=== PATIENT | male | born 1955 | race Caucasian/White ===

== ENCOUNTER 2020-04-10 00:20 | Emergency (ER) | payer MEDICAID ==
[~2020-04-10] VITALS: Ht 182.9 cm; Wt 104.3 kg
--- NOTE | 2020-04-10 00:29 | NUR ---
BIBRA C/O MIDSTERNAL CP X40 MINS AGO RADIATING TO LEFT SIDE NECK. PER RA PT HAD MULTIPLE COMPLAINTS BUT STATED CP TOWARDS THE END. ALSO PER RA EKG DONE SINUS RYTHM. PT PLACED ON MONITOR AND PULSE OX. VSS. NO ACUTE DISTRESS NOTED. AWAITING MD FOR EVAL AND ORDERS.
--- NOTE | 2020-04-10 00:47 | NUR ---
[employer] MANAGER AT BEDSIDE FOR LABS
[2020-04-10 00:56] LABS: BASOPHILS % (AUTO) 0.4 % (0.0-2.0); EOSINOPHILS % (AUTO) 3.1 % (0.0-6.0); HEMATOCRIT 39 % (39-51); HEMOGLOBIN 13.7 g/dL (13.5-17.5); LYMPHOCYTES # (AUTO) 1.6 /CMM (0.8-4.8); LYMPHOCYTES % (AUTO) 21.8 % (20.0-44.0); MEAN CORPUSCULAR HGB CONC 35 g/dl (31.0-36.0); MEAN CORPUSCULAR VOLUME 92 fL (80-96); MONOCYTES # (AUTO) 0.5 /CMM (0.1-1.30); MONOCYTES % (AUTO) 6.2 % (2.0-12.0); NEUTROPHILS # (AUTO) 5.1 /CMM (1.8-8.9); NEUTROPHILS % (AUTO) 68.5 % (43.0-81.0); RED BLOOD CELL COUNT(AUTO) 4.26 MIL/uL (4.5-6.0); WHITE BLOOD COUNT (AUTO) 7.5 K/uL (4.3-11.0)
[2020-04-10 01:03] LABS: CARBON DIOXIDE 28 mmol/L (21-32); CHLORIDE 105 mmol/L (98-107); CREATININE 0.8 mg/dL (0.6-1.3); GLUCOSE 142 mg/dL (74-106); POTASSIUM 3.2 mmol/L (3.5-5.1); SODIUM SERUM 139 mmol/L (136-145); UREA NITROGEN, BLOOD 24 mg/dL (7-18)
[2020-04-10 01:08] LABS: PLATELET COUNT (AUTO) 98 /CMM (150-450)
--- NOTE | 2020-04-10 01:19 | NUR ---
PT ASLEEP. VSS.
--- NOTE | 2020-04-10 02:29 | NUR ---
PT MOVED TO ER BED [address] FISHER.
--- NOTE | 2020-04-10 03:18 | NUR ---
REFUSED TO BE SWABBED, MD AWARE.
--- NOTE | 2020-04-10 03:28 | NUR ---
Patient discharged to home in stable condition. Written and verbal after care instructions given. Patient verbalizes understanding of instruction and RX. IV removed. Catheter intact and site benign. Pressure and 4x4 applied to site. No bleeding noted. Pt ambulated with steady gait.
[2020-04-10 03:30] VITALS: BP 133/76
== END 2020-04-10 03:30 | disposition home or self-care (01) ==
LOC: ER 00:24
DX: R07.89 Other chest pain (principal); R91.8 Other nonspecific abnormal finding of lung field; F43.9 Reaction to severe stress, unspecified; M79.606 Pain in leg, unspecified; G89.29 Other chronic pain; M25.559 Pain in unspecified hip
CPT/HCPCS: 36415; 71045-TC; 80048-TC; 84484-TC; 85025-TC

== ENCOUNTER 2020-06-23 10:58 | Emergency (ER) | payer MEDICAID, OTHER ==
[~2020-06-23] VITALS: Ht 182.9 cm; Wt 99.3 kg
[2020-06-23 10:58] VITALS: BP 125/78
== END 2020-06-23 11:30 | disposition home or self-care (01) ==
LOC: ER 11:05
DX: S40.862A Insect bite (nonvenomous) of left upper arm, initial encounter (principal); S40.861A Insect bite (nonvenomous) of right upper arm, initial encounter; S80.862A Insect bite (nonvenomous), left lower leg, initial encounter; S80.861A Insect bite (nonvenomous), right lower leg, initial encounter; S10.96XA Insect bite of unspecified part of neck, initial encounter; M25.552 Pain in left hip; G89.29 Other chronic pain; Z98.890 Other specified postprocedural states; W57.XXXA Bitten or stung by nonvenomous insect and other nonvenomous arthropods, initial encounter; Y93.89 Activity, other specified; Y92.89 Other specified places as the place of occurrence of the external cause; Y99.8 Other external cause status

== ENCOUNTER 2020-07-03 11:03 | Emergency (ER) | payer OTHER ==
[~2020-07-03] VITALS: Ht 177.8 cm; Wt 79.4 kg
[2020-07-03 11:21] VITALS: BP 152/89
== END 2020-07-03 12:43 | disposition home or self-care (01) ==
LOC: ER 11:04
DX: S40.862A Insect bite (nonvenomous) of left upper arm, initial encounter (principal); S40.861A Insect bite (nonvenomous) of right upper arm, initial encounter; S20.462A Insect bite (nonvenomous) of left back wall of thorax, initial encounter; S20.461A Insect bite (nonvenomous) of right back wall of thorax, initial encounter; B86 Scabies; L29.9 Pruritus, unspecified; F17.200 Nicotine dependence, unspecified, uncomplicated; G89.29 Other chronic pain; Z98.890 Other specified postprocedural states; W57.XXXA Bitten or stung by nonvenomous insect and other nonvenomous arthropods, initial encounter; Y93.89 Activity, other specified; Y92.89 Other specified places as the place of occurrence of the external cause; Y99.8 Other external cause status

== ENCOUNTER 2020-07-19 09:49 | Emergency (ER) | payer OTHER ==
[~2020-07-19] VITALS: Ht 182.9 cm; Wt 95.3 kg
--- NOTE | 2020-07-19 09:52 | NUR ---
CALLED TO TRIAGE NO ANSWER.
[2020-07-19 10:04] VITALS: BP 141/97
--- NOTE | 2020-07-19 10:24 | NUR ---
Patient discharged to home in stable condition. Written and verbal after care instructions given. Patient verbalizes understanding of instruction.
== END 2020-07-19 10:26 | disposition home or self-care (01) ==
LOC: ER 09:54
DX: S10.86XA Insect bite of other specified part of neck, initial encounter (principal); S80.862A Insect bite (nonvenomous), left lower leg, initial encounter; S80.861A Insect bite (nonvenomous), right lower leg, initial encounter; Z53.21 Procedure and treatment not carried out due to patient leaving prior to being seen by health care provider; W57.XXXA Bitten or stung by nonvenomous insect and other nonvenomous arthropods, initial encounter; Y93.89 Activity, other specified; Y92.89 Other specified places as the place of occurrence of the external cause; Y99.8 Other external cause status

== ENCOUNTER 2020-07-29 19:04 | Emergency (ER) | payer OTHER ==
[~2020-07-29] VITALS: Ht 182.9 cm; Wt 95.3 kg
--- NOTE | 2020-07-29 19:15 | NUR ---
DR FOSTER AT BEDSIDE
[2020-07-29 19:17] VITALS: BP 149/96
--- NOTE | 2020-07-29 20:04 | NUR ---
Patient given written and verbal discharge instructions. Patient verbalizes understanding of instructions. Patient is ambulatory with steady gait. Refuses offer of nursing home placement. Patient given list of available shelters in surrounding area.
== END 2020-07-29 20:06 | disposition home or self-care (01) ==
LOC: ER 19:09
DX: M19.90 Unspecified osteoarthritis, unspecified site (principal); G89.29 Other chronic pain; F17.200 Nicotine dependence, unspecified, uncomplicated; Z98.890 Other specified postprocedural states

== ENCOUNTER 2020-08-06 11:08 | Emergency (ER) | payer OTHER ==
[~2020-08-06] VITALS: Ht 182.9 cm; Wt 95.3 kg
[2020-08-06 11:08] VITALS: BP 144/84
== END 2020-08-06 12:04 | disposition home or self-care (01) ==
LOC: ER 11:11
DX: S60.562A Insect bite (nonvenomous) of left hand, initial encounter (principal); S60.561A Insect bite (nonvenomous) of right hand, initial encounter; S20.462A Insect bite (nonvenomous) of left back wall of thorax, initial encounter; S20.461A Insect bite (nonvenomous) of right back wall of thorax, initial encounter; S10.86XA Insect bite of other specified part of neck, initial encounter; L29.9 Pruritus, unspecified; G89.29 Other chronic pain; M25.552 Pain in left hip; Z98.890 Other specified postprocedural states; Z76.0 Encounter for issue of repeat prescription; W57.XXXA Bitten or stung by nonvenomous insect and other nonvenomous arthropods, initial encounter; Y93.89 Activity, other specified; Y92.89 Other specified places as the place of occurrence of the external cause; Y99.8 Other external cause status

== ENCOUNTER 2020-09-03 08:01 | Emergency (ER) | payer OTHER ==
[~2020-09-03] VITALS: Ht 180.3 cm; Wt 97.5 kg
[2020-09-03 08:02] VITALS: BP 153/92
== END 2020-09-03 08:18 | disposition home or self-care (01) ==
LOC: ER 08:03
DX: L03.114 Cellulitis of left upper limb (principal); L03.113 Cellulitis of right upper limb; Z76.0 Encounter for issue of repeat prescription; G89.29 Other chronic pain; F17.200 Nicotine dependence, unspecified, uncomplicated; Z98.890 Other specified postprocedural states

== ENCOUNTER 2020-09-19 12:46 | Emergency (ER) | payer BC, MEDICAID ==
[~2020-09-19] VITALS: Ht 182.9 cm; Wt 90.7 kg
[2020-09-19 13:39] VITALS: BP 155/86
--- NOTE | 2020-09-19 14:14 | NUR ---
Patient discharged to home in stable condition. Written and verbal after care instructions given. Patient verbalizes understanding of instruction.
== END 2020-09-19 14:14 | disposition home or self-care (01) ==
LOC: ER 12:50
DX: S40.862A Insect bite (nonvenomous) of left upper arm, initial encounter (principal); S40.861A Insect bite (nonvenomous) of right upper arm, initial encounter; S80.862A Insect bite (nonvenomous), left lower leg, initial encounter; S80.861A Insect bite (nonvenomous), right lower leg, initial encounter; L03.113 Cellulitis of right upper limb; L03.221 Cellulitis of neck; G89.29 Other chronic pain; M25.552 Pain in left hip; Z98.890 Other specified postprocedural states; W57.XXXA Bitten or stung by nonvenomous insect and other nonvenomous arthropods, initial encounter; Y93.89 Activity, other specified; Y92.89 Other specified places as the place of occurrence of the external cause; Y99.8 Other external cause status